=== PATIENT | female | born 1975 | race Caucasian/White ===

== ENCOUNTER → 2017-05-10 | Outpatient (CLI) | payer OTHER ==
[~2017-05-10] VITALS: Ht 165.1 cm; Wt 57.2 kg
[~2017-05-10] MED LIST: SOLODYN80 MG PO
== END | disposition home or self-care (01) ==
LOC: AMB 04-29 11:30
PROC: 0DBE8ZX Excision of Large Intestine, Via Natural or Artificial Opening Endoscopic, Diagnostic (ICD-10-PCS; principal; 2017-05-10)
DX: K64.8 Other hemorrhoids (principal); K52.9 Noninfective gastroenteritis and colitis, unspecified; Z80.0 Family history of malignant neoplasm of digestive organs; Z72.0 Tobacco use; Z91.040 Latex allergy status
CPT/HCPCS: 88305